=== PATIENT | female | born 1995 | race Caucasian/White ===

== ENCOUNTER → 2024-05-17 | Outpatient (CLI) | payer MEDICAID ==
--- NOTE | 2024-05-17 13:08 | US ---
EXAMINATION TYPE: US abdomen limited DATE OF EXAM: 05/17/2024 COMPARISON: NONE CLINICAL INDICATION: Female, 29 years old with history of K42.9 umbilical hernia without obstruction or gang; Umbilical hernia check. TECHNIQUE: Grayscale with or without color Doppler imaging of the area of hernia concern. Real-time scanning was performed by the school lunch manager utilizing Valsalva and additional dynamic maneuve rs to assess for hernia. Images of the contralateral side were also acquired for direct comparison. FINDINGS: Assess for hernia at location of: Umbilicus *Scanned umbilicus. No obvious abnormality seen by ultrasound at this time. Exam is limited due to gas. IMPRESSION: No evidence for abnormality involving the umbilicus to the stent. Consider CT imaging for further salina luation. [facility], , 05/17/2024 1:05 PM
== END | disposition home or self-care (01) ==
LOC: RADUSWWP 11:28
PROVIDERS: ATTEND Plastic Surgery
DX: K42.9 Umbilical hernia without obstruction or gangrene (principal)
CPT/HCPCS: 76705